=== PATIENT | female | born 1950 | race Caucasian/White ===

== ENCOUNTER 2017-10-16 15:12 | Emergency (ER) | payer MEDICARE, OTHER ==
[~2017-10-16] VITALS: Ht 165.1 cm; Wt 50.0 kg
[~2017-10-16 15:12] MED LIST: ACET-784 PO; CALC-895 PO; FERR-89 PO; LISI-662 PO
[2017-10-16 16:36] VITALS: BP 154/84
== END 2017-10-16 16:40 | disposition home or self-care (01) ==
LOC: EMS 15:14
DX: M25.552 Pain in left hip (principal); M25.512 Pain in left shoulder; G89.29 Other chronic pain; F17.210 Nicotine dependence, cigarettes, uncomplicated; I10 Essential (primary) hypertension; Z76.0 Encounter for issue of repeat prescription; Z88.6 Allergy status to analgesic agent
CPT/HCPCS: 99282

== ENCOUNTER 2024-12-24 16:02 | Emergency (ER) | payer MEDICARE, OTHER ==
[~2024-12-24] VITALS: Ht 162.6 cm; Wt 44.5 kg
[~2024-12-24 16:02] MED LIST changes: -FERR-89 PO; +FERR325T27 PO; -LISI-662 PO; +LISI-894 PO
[2024-12-24 16:15] VITALS: BP 164/87; PULSE 78; RESP 18; TEMP 98.4; O2SAT 98
[2024-12-24] MEDS ORDERED: LISI-661 PO (16:15)
== END 2024-12-24 16:46 | disposition left against medical advice (07) ==
LOC: EMS 16:02
DX: R53.1 Weakness (principal); R11.10 Vomiting, unspecified; Z53.21 Procedure and treatment not carried out due to patient leaving prior to being seen by health care provider
CPT/HCPCS: 93005